=== PATIENT | female | born 2005 | race Caucasian/White ===

== ENCOUNTER 2024-01-06 22:30 | Emergency (ER) | payer OTHER ==
[~2024-01-06] VITALS: Ht 157.5 cm; Wt 70.9 kg
[2024-01-07 01:22] VITALS: BP 124/77; PULSE 96; RESP 18; TEMP 98.7
[2024-01-07] MEDS ORDERED: CEPH-558 PO (01:48)
[2024-01-07] MEDS ORDERED: METR375C2 PO (01:53)
== END 2024-01-07 02:21 | disposition home or self-care (01) ==
LOC: EMS 22:30
DX: L05.91 Pilonidal cyst without abscess (principal)
CPT/HCPCS: 99283; Z7502

== ENCOUNTER 2024-01-09 07:31 | Emergency (ER) | payer OTHER ==
[~2024-01-09] VITALS: Ht 157.5 cm; Wt 68.2 kg
[~2024-01-09 07:31] MED LIST: CEPH-558 PO; METR375C2 PO
[2024-01-09 07:32] VITALS: TEMP 98.5
[2024-01-09] MEDS: LIDOCAINE 1% 10 ML VIAL SQ ONE (07:52)
[2024-01-09] MEDS: ACETAMINOPHEN/CODEINE 300 MG-30 MG/12.5 ML ELIXIR UDCUP PO ONE (09:13)
[2024-01-09] MEDS ORDERED: ACET-3560 PO (09:21)
[2024-01-09 09:30] VITALS: BP 123/73; PULSE 98; RESP 14
== END 2024-01-09 09:58 | disposition home or self-care (01) ==
LOC: EMS 07:35
DX: L05.91 Pilonidal cyst without abscess (principal)
CPT/HCPCS: 99283; 10060; J3490